=== PATIENT | male | born 1970 | race African-American/Black ===

== ENCOUNTER 2024-05-29 15:22 | Inpatient (IN) | payer MEDICAID, OTHER ==
[~2024-05-29] VITALS: Ht 195.6 cm; Wt 114.8 kg
[2024-05-29] MEDS: PANTOPRAZOLE SODIUM 40 MG/VIAL IV NR (01:27)
[~2024-05-29 15:22] MED LIST: ASPI-1497 MT; ATOR20TA65 MT; CALC667T6 MT; CHLO25TA2 MT; FURO-151 MT; ISOS60TA76 MT; NIFE20CA8 PO; TERA2CAP4 PO
[2024-05-29 16:44] LABS: CHLORIDE 100 mEq/L (98-107); POTASSIUM 4.6 mEq/L (3.5-5.1); SODIUM 141 mEq/L (136-145)
[2024-05-29 16:45] LABS: BASOPHILS % 0.8 % (0.0-2.0); CALCIUM 9.2 mg/dL (8.7-10.4); CARBON DIOXIDE 32 mEq/L (21-32); EOSINOPHILS % 1.6 % (0.0-5.0); HEMATOCRIT. 29.6 % (42.0-52.0); HEMOGLOBIN. 9.7 g/dL (14.0-18.0); LYMPHOCYTES % 16.5 % (20.0-50.0); MEAN CORPUSCULAR HEMOGLOBIN 26.9 pg (28.0-32.0); MEAN CORPUSCULAR HGB CONC 32.8 g/dL (31.0-37.0); MEAN CORPUSCULAR VOLUME 82.1 fL (80.0-94.0); MEAN PLATELET VOLUME 7.6 fl (7.4-10.4); MONOCYTES % 6.5 % (2.0-8.0); NEUTROPHILS % 74.6 % (40.0-76.0); PLATELET 171 x1000/uL (130-400); RED CELL DISTRIBUTION WIDTH 22.8 % (11.6-14.6); WHITE BLOOD COUNT 5.7 x1000/uL (4.5-11.0)
[2024-05-29 16:49] LABS: DIFFERENTIAL COMMENT 1
[2024-05-29 16:50] LABS: ADD RBC MORPHOLOGY YES; GLUCOSE 92 mg/dL (70-105)
[2024-05-29 16:51] LABS: UREA NITROGEN BLOOD 48 mg/dL (9-23)
[2024-05-29 17:07] LABS: CREATININE 9.1 mg/dL (0.6-1.3); TROPONIN I HIGH SENSITIVITY 156 ng/L (3.0-53)
[2024-05-29] MEDS: MORPHINE SULFATE 4 MG/ML INJ (FOR IV/IM USE) IV ONE ×2 (18:14→20:12)
[2024-05-29 19:47] LABS: ANISOCYTOSIS 3+; PLATELET ESTIMATE NORMAL
[2024-05-29 19:48] LABS: HYPOCHROMASIA 1+; OVALOCYTES 1+
[2024-05-29 19:52] LABS: TROPONIN I HIGH SENSITIVITY 160 ng/L (3.0-53)
[2024-05-29 21:45] VITALS: BP 144/89; PULSE 90; RESP 18; TEMP 37.8
[2024-05-29] MEDS ORDERED: ONDANSETRON HCL 4MG/2ML INJ IV PRN (22:00)
[2024-05-29] MEDS ORDERED: DOCUSATE SODIUM 100MG CAPSULE PO PRN (22:00)
[2024-05-29] MEDS ORDERED: DEXT 5%/0.45% NACL 1000ML 1,000 ML IV SCH (22:00)
[2024-05-29] MEDS ORDERED: ACETAMINOPHEN 325MG TABLET PO PRN ×2 (22:00)
[2024-05-29] MEDS ORDERED: MAGNESIUM/ALUMINUM HYDROXIDE/SIMETHICONE 30ML UDC PO PRN (22:00)
[2024-05-29] MEDS ORDERED: NA PHOS,M-B/NA PHOS,DI-BA ENEMA 118ML PR PRN (22:00)
[2024-05-29] MEDS ORDERED: MORPHINE SULFATE 2 MG/ML INJ (NOT FOR IM USE) IV PRN (22:00)
[2024-05-29] MEDS ORDERED: GUAIFENESIN 200MG/10ML SUGAR FREE UDC PO PRN (22:00)
[2024-05-29] MEDS ORDERED: DIPHENHYDRAMINE 50MG/ML VIAL IV PRN (22:00)
[2024-05-29] MEDS ORDERED: NALOXONE HCL 0.4MG/ML VIAL IV PRN (22:00)
[2024-05-29] MEDS ORDERED: HYDROCODONE/ACETAMINOPHEN 5/325MG TABLET PO PRN (22:00)
[2024-05-29 22:56] LABS: PHOSPHORUS 3.9 mg/dL (2.5-4.9)
[2024-05-29] MEDS ORDERED: IOHEXOL-300 100 ML BOTTLE ONE (23:40)
[2024-05-30] VITALS: BP_SYST 113; BP_SYST 144; BP_DIAS 44; BP_DIAS 89; PULSE 85; PULSE 90; RESP 18; TEMP 36.6; TEMP 37.7; O2SAT 100; O2SAT 97
[2024-05-30 00:02] LABS: INR 1.1; PROTHROMBIN TIME 11.8 sec (9.6-11.0)
[2024-05-30 04:00] VITALS: BP 167/97; PULSE 101; RESP 18; TEMP 37.2; O2SAT 98
[2024-05-30] MEDS: CLONIDINE 0.1MG TABLET PO PRN (06:05)
[2024-05-30 07:23] LABS: BASOPHILS % 0.4 % (0.0-2.0); EOSINOPHILS % 0.1 % (0.0-5.0); LYMPHOCYTES % 12.7 % (20.0-50.0); MEAN CORPUSCULAR HEMOGLOBIN 27.2 pg (28.0-32.0); MEAN CORPUSCULAR HGB CONC 32.7 g/dL (31.0-37.0); MEAN PLATELET VOLUME 7.4 fl (7.4-10.4); NEUTROPHILS % 77.8 % (40.0-76.0); PLATELET 128 x1000/uL (130-400); RED BLOOD CELL COUNT 2.34 mill/uL (4.7-6.1); RED CELL DISTRIBUTION WIDTH 23.1 % (11.6-14.6); WHITE BLOOD COUNT 7.3 x1000/uL (4.5-11.0)
[2024-05-30 07:33] LABS: POTASSIUM 5.3 mEq/L (3.5-5.1)
[2024-05-30 07:34] LABS: CALCIUM 8.7 mg/dL (8.7-10.4)
[2024-05-30] MEDS ORDERED: POLYMYXIN B SULFATE 500000 UNITS/VIAL ONE (07:45)
[2024-05-30] MEDS ORDERED: VANCOMYCIN HCL 1GM VIAL ONE (07:45)
[2024-05-30] MEDS ORDERED: LIDOCAINE HCL/EPINEPHRINE 1%-EPI 1:100,000 20ML VIAL ONE (07:46)
[2024-05-30] MEDS ORDERED: SKIN ADHESIVE 0.7 GM EA TOP ONE (07:46)
[2024-05-30] MEDS ORDERED: BUPIVACAINE HCL/PF 0.5% (5MG/ML) 10ML ONE (07:46)
[2024-05-30] MEDS ORDERED: BACITRACIN 14GM TUBE TOP ONE (07:46)
[2024-05-30 08:15] LABS: CREATININE 10.3 mg/dL (0.6-1.3); DIFFERENTIAL COMMENT 1; HEMATOCRIT. 19.4 % (42.0-52.0); HEMOGLOBIN. 6.4 g/dL (14.0-18.0)
[2024-05-30] MEDS ORDERED: DEXTROSE 50% WATER 50ML SYRINGE IV PRN (08:15)
[2024-05-30] MEDS ORDERED: TRANEXAMIC ACID 1000MG PREMIX 100 ML IV ONE (08:57)
[2024-05-30] MEDS: PANTOPRAZOLE SODIUM 40 MG/VIAL IV SCH (09:00)
[2024-05-30] MEDS ORDERED: FENTANYL CITRATE/PF 50MCG/ML 5ML VIAL ONE (10:05)
[2024-05-30] MEDS ORDERED: ROCURONIUM BROMIDE 10MG/ML VIAL 5ML IV ONE (10:14)
[2024-05-30] MEDS ORDERED: SUGAMMADEX SODIUM 200MG/2ML VIAL IV ONE ×2 (10:23→10:36)
[2024-05-30] MEDS ORDERED: ONDANSETRON HCL 4MG/2ML INJ IV PRN (11:00)
[2024-05-30] MEDS ORDERED: GLYCOPYRROLATE 0.2 MG/ML 2ML VIAL IV PRN (11:00)
[2024-05-30] MEDS ORDERED: LABETALOL 5MG/ML 4ML INJ IV PRN (11:00)
[2024-05-30] MEDS ORDERED: HYDROMORPHONE HCL/PF 1MG/ML INJ IV PRN ×2 (11:00)
[2024-05-30] MEDS: BLOOD SUGAR DIAGNOSTIC STRIP TEST SCH (11:24)
[2024-05-30] MEDS ORDERED: SODIUM POLYSTYRENE SULFONATE 15 G/60 ML BOT PO ONE (11:30)
[2024-05-30] MEDS: HYDRALAZINE 20MG/ML VIAL IV PRN (11:34)
[2024-05-30] MEDS: SODIUM ZIRCONIUM CYCLOSILICATE 10GM/PACKET PO NR (11:45)
[2024-05-30] MEDS ORDERED: LABETALOL 5MG/ML 4ML INJ IV ONE (13:15)
[2024-05-30 14:00] VITALS: BP 180/78; PULSE 81; RESP 20; TEMP 36.55848; O2SAT 97
[2024-05-30] MEDS ORDERED: HYDRALAZINE IV NR (14:00)
[2024-05-30] MEDS ORDERED: SODIUM CHLORIDE 0.9% IV NR (14:00)
[2024-05-30] MEDS: HYDRALAZINE 10 MG in SODIUM CHLORIDE 0.9% 49.5 ML IV NR (14:46)
[2024-05-30] MEDS: CEFAZOLIN 500 MG in DEXTROSE 5% WATER 50 ML IV SCH (14:46)
[2024-05-30 15:00] VITALS: BP_SYST 144; BP_SYST 148; BP_DIAS 70; BP_DIAS 92; PULSE 81; PULSE 91; RESP 20; TEMP 100.4; O2SAT 100; O2SAT 97
[2024-05-30 16:00] VITALS: BP 183/102; PULSE 111; RESP 17; O2SAT 98
[2024-05-30] MEDS: LABETALOL 5MG/ML 4ML INJ IV NR (16:16)
[2024-05-30 16:30] VITALS: BP 148/92
[2024-05-30] MEDS: HYDROMORPHONE HCL/PF 1MG/ML INJ IV PRN (16:30)
== END 2024-05-30 16:45 | disposition short-term general hospital (02) | DRG 342 ==
LOC: ER 15:22 → 6EST 18:54 → EDBEDREQSVC 18:57 → EDBEDREQ 18:57
PROVIDERS: ADMIT Internal Medicine; ATTEND Internal Medicine
PROC: 0QSKXZZ Reposition Left Fibula, External Approach (ICD-10-PCS; principal; 2024-05-30)
PROC: 5A1D70Z Performance of Urinary Filtration, Intermittent, Less than 6 Hours Per Day (ICD-10-PCS; 2024-05-30)
PROC: 30233N1 Transfusion of Nonautologous Red Blood Cells into Peripheral Vein, Percutaneous Approach (ICD-10-PCS; 2024-05-30)
DX: S82.845A Nondisplaced bimalleolar fracture of left lower leg, initial encounter for closed fracture (principal); I13.2 Hypertensive heart and chronic kidney disease with heart failure and with stage 5 chronic kidney disease, or end stage renal disease; N18.6 End stage renal disease; E87.5 Hyperkalemia; I25.10 Atherosclerotic heart disease of native coronary artery without angina pectoris; I50.9 Heart failure, unspecified; S30.0XXA Contusion of lower back and pelvis, initial encounter; S30.1XXA Contusion of abdominal wall, initial encounter; Z79.899 Other long term (current) drug therapy; Z82.49 Family history of ischemic heart disease and other diseases of the circulatory system; Y93.89 Activity, other specified; Y92.89 Other specified places as the place of occurrence of the external cause; Y99.8 Other external cause status; Z99.2 Dependence on renal dialysis; V87 Traffic accident of specified type but victim's mode of transport unknown
CPT/HCPCS: 36415; 71045; 72170; 73610; 74177; 80048; 82962; 83036; 83735; 83880; 84100; 84484; 85025; 86850; 86900; 86920; 90935; 93005; 99285; A4606; J0360; J0665; J0690; J1171; J2004; J2270; J2470; J3010; J3370; J3490; J7050; J7060; P9016; Q9967